=== PATIENT | male | born 1960 | race Two or more races ===

== ENCOUNTER 2016-08-02 08:32 | Outpatient (CLI) | payer BC, OTHER ==
[2016-08-02 09:59] LABS: BASOPHILS % (AUTO) 0.6 % (0.0-2.0); EOSINOPHILS # (AUTO) 0.3 /CMM (0.0-0.7); EOSINOPHILS % (AUTO) 4.5 % (0.0-6.0); HEMATOCRIT 51 % (39-51); HEMOGLOBIN 17.1 g/dL (13.5-17.5); LYMPHOCYTES # (AUTO) 3.2 /CMM (0.8-4.8); LYMPHOCYTES % (AUTO) 42.1 % (20.0-44.0); MEAN CORPUSCULAR HEMOGLOBIN 30 PG (26.0-33.0); MEAN CORPUSCULAR HGB CONC 34 g/dl (31.0-36.0); MEAN CORPUSCULAR VOLUME 89 fL (80-96); MONOCYTES # (AUTO) 0.4 /CMM (0.1-1.30); MONOCYTES % (AUTO) 5.6 % (2.0-12.0); NEUTROPHILS # (AUTO) 3.6 /CMM (1.8-8.9); NEUTROPHILS % (AUTO) 47.2 % (43.0-81.0); PLATELET COUNT (AUTO) 256 /CMM (150-450); RDW COEFFICIENT OF VARIATION 12.5 (11.5-15.0); RED BLOOD CELL COUNT(AUTO) 5.69 MIL/uL (4.5-6.0); WHITE BLOOD COUNT (AUTO) 7.6 K/uL (4.3-11.0)
[2016-08-02 10:02] LABS: APPEARANCE,URINE CLEAR (CLEAR); BILIRUBIN,URINE NEGATIVE (NEGATIVE); BLOOD, URINE TRACE Ery/uL (NEGATIVE); COLOR,URINE YELLOW (YELLOW); KETONES,URINE NEGATIVE (NEGATIVE); LEUKOCYTE ESTERASE ,URINE NEGATIVE (NEGATIVE); NITRITE, URINE NEGATIVE (NEGATIVE); PH,URINE 6.5 (5.0-8.0); PROTEIN,URINE NEGATIVE (NEGATIVE); UGLUCOSE NEGATIVE (NEGATIVE); UROBILINOGEN,URINE 0.2 EU/dL (0.2)
[2016-08-02 10:20] LABS: ALBUMIN 4.1 g/dL (3.4-5.0); BILIRUBIN,TOTAL 0.5 mg/dL (0.2-1.0); CALCIUM, SERUM 8.9 mg/dL (8.5-10.1); CREATININE 0.9 mg/dL (0.6-1.3); POTASSIUM 4.4 mmol/L (3.5-5.1); TOTAL PROTEIN, SERUM 7.9 g/dL (6.4-8.2)
[2016-08-02 10:30] LABS: FREE T4 (FREE THYROXINE) 0.92 ng/dL (0.76-1.46); THYROID STIMULATING HORMONE 1.265 uIU/mL (0.358-3.74)
[2016-08-02 10:37] LABS: ADD URINE CULTURE NO; BACTERIA,URINE None seen /HPF (None Seen); RBC,URINE 0-2 /HPF (0-2); SQUAMOUS EPITHELIAL CELL,UR None Seen /HPF (None Seen); WBC,URINE NONE SEEN /HPF (0-3)
== END 2016-08-02 23:59 | disposition home or self-care (01) ==
LOC: LAB 08:32
PROVIDERS: ATTEND Family Medicine
DX: I10 Essential (primary) hypertension (principal); E55.9 Vitamin D deficiency, unspecified
CPT/HCPCS: 36415; 80053-TC; 80061-TC; 81000-TC; 82306; 84439-TC; 84443-TC; 85025-TC

== ENCOUNTER → 2016-08-15 | Outpatient (CLI) | payer BC, OTHER ==
[2016-08-15 09:24] LABS: APPEARANCE,URINE CLEAR (CLEAR); BILIRUBIN,URINE NEGATIVE (NEGATIVE); BLOOD, URINE TRACE-INTA Ery/uL (NEGATIVE); COLOR,URINE YELLOW (YELLOW); KETONES,URINE NEGATIVE (NEGATIVE); LEUKOCYTE ESTERASE ,URINE NEGATIVE (NEGATIVE); NITRITE, URINE NEGATIVE (NEGATIVE); PROTEIN,URINE NEGATIVE (NEGATIVE); UGLUCOSE NEGATIVE (NEGATIVE); UROBILINOGEN,URINE 0.2 EU/dL (0.2)
[2016-08-15 09:28] LABS: RBC,URINE 0-2 /HPF (0-2); WBC,URINE NONE SEEN /HPF (0-3)
[2016-08-15 09:29] LABS: ADD URINE CULTURE NO; BACTERIA,URINE None seen /HPF (None Seen); SQUAMOUS EPITHELIAL CELL,UR Few /HPF (None Seen)
== END | disposition home or self-care (01) ==
LOC: LAB 08:54
PROVIDERS: ATTEND Family Medicine
DX: R31.21 Asymptomatic microscopic hematuria (principal)
CPT/HCPCS: 81000-TC

== ENCOUNTER → 2016-08-16 | Outpatient (CLI) | payer BC, OTHER | END | disposition home or self-care (01) | LOC: US 08:51 | PROVIDERS: ATTEND Family Medicine | DX: N40.0 Benign prostatic hyperplasia without lower urinary tract symptoms (principal); N28.89 Other specified disorders of kidney and ureter | CPT/HCPCS: 76770-TC ==

== ENCOUNTER 2016-09-19 08:12 | Outpatient (CLI) | payer BC, OTHER ==
[2016-09-19 08:37] LABS: BASOPHILS % (AUTO) 0.4 % (0.0-2.0); EOSINOPHILS # (AUTO) 0.3 /CMM (0.0-0.7); EOSINOPHILS % (AUTO) 2.9 % (0.0-6.0); HEMATOCRIT 47 % (39-51); HEMOGLOBIN 16.5 g/dL (13.5-17.5); LYMPHOCYTES # (AUTO) 3.2 /CMM (0.8-4.8); LYMPHOCYTES % (AUTO) 32.8 % (20.0-44.0); MEAN CORPUSCULAR HEMOGLOBIN 31 PG (26.0-33.0); MEAN CORPUSCULAR HGB CONC 35 g/dl (31.0-36.0); MEAN CORPUSCULAR VOLUME 88 fL (80-96); MONOCYTES # (AUTO) 0.6 /CMM (0.1-1.30); MONOCYTES % (AUTO) 5.7 % (2.0-12.0); NEUTROPHILS # (AUTO) 5.7 /CMM (1.8-8.9); NEUTROPHILS % (AUTO) 58.2 % (43.0-81.0); PLATELET COUNT (AUTO) 252 /CMM (150-450); RDW COEFFICIENT OF VARIATION 12.1 (11.5-15.0); RED BLOOD CELL COUNT(AUTO) 5.38 MIL/uL (4.5-6.0); WHITE BLOOD COUNT (AUTO) 9.9 K/uL (4.3-11.0)
[2016-09-19 09:03] LABS: BILIRUBIN,TOTAL 0.7 mg/dL (0.2-1.0); CALCIUM, SERUM 9.2 mg/dL (8.5-10.1); POTASSIUM 4.3 mmol/L (3.5-5.1); TOTAL PROTEIN, SERUM 7.9 g/dL (6.4-8.2)
[2016-09-19] MEDS ORDERED: IV NS 0.9% 250 ML IV ONE (09:05)
[2016-09-19] MEDS ORDERED: CT SWABBABLE VALVE TRANS SET 1 EA INFUS.SET MC ONE (09:05)
[2016-09-19] MEDS ORDERED: IOHEXOL-300 100 ML VIAL IV ONE (09:05)
== END 2016-09-19 23:59 | disposition home or self-care (01) ==
LOC: CT 08:12
PROVIDERS: ATTEND Family Medicine
DX: N20.0 Calculus of kidney (principal); M47.897 Other spondylosis, lumbosacral region; M48.07 Spinal stenosis, lumbosacral region; E78.2 Mixed hyperlipidemia
CPT/HCPCS: 36415; 74178; 80053; 80061; 85025; J7050; Q9967

== ENCOUNTER 2017-07-01 08:57 | Outpatient (CLI) | payer BC, OTHER ==
[2017-07-01 09:53] LABS: BASOPHILS # (AUTO) 0.1 /CMM (0.0-0.2); BASOPHILS % (AUTO) 0.7 % (0.0-2.0); EOSINOPHILS # (AUTO) 0.1 /CMM (0.0-0.7); EOSINOPHILS % (AUTO) 1.8 % (0.0-6.0); HEMATOCRIT 47 % (39-51); LYMPHOCYTES # (AUTO) 3.3 /CMM (0.8-4.8); MEAN CORPUSCULAR HEMOGLOBIN 31 PG (26.0-33.0); MEAN CORPUSCULAR HGB CONC 34 g/dl (31.0-36.0); MEAN CORPUSCULAR VOLUME 89 fL (80-96); MONOCYTES # (AUTO) 0.5 /CMM (0.1-1.30); NEUTROPHILS # (AUTO) 3.9 /CMM (1.8-8.9); NEUTROPHILS % (AUTO) 49.5 % (43.0-81.0); PLATELET COUNT (AUTO) 232 /CMM (150-450); RDW COEFFICIENT OF VARIATION 12.2 (11.5-15.0); RED BLOOD CELL COUNT(AUTO) 5.24 MIL/uL (4.5-6.0); WHITE BLOOD COUNT (AUTO) 7.9 K/uL (4.3-11.0)
[2017-07-01 10:14] LABS: BILIRUBIN,TOTAL 0.8 mg/dL (0.2-1.0); CALCIUM, SERUM 9.1 mg/dL (8.5-10.1); CREATININE 0.9 mg/dL (0.6-1.3); POTASSIUM 4.5 mmol/L (3.5-5.1); TOTAL PROTEIN, SERUM 7.8 g/dL (6.4-8.2)
[2017-07-01 10:15] LABS: APPEARANCE,URINE CLEAR (CLEAR); BILIRUBIN,URINE NEGATIVE (NEGATIVE); BLOOD, URINE TRACE Ery/uL (NEGATIVE); COLOR,URINE YELLOW (YELLOW); KETONES,URINE NEGATIVE (NEGATIVE); LEUKOCYTE ESTERASE ,URINE NEGATIVE (NEGATIVE); NITRITE, URINE NEGATIVE (NEGATIVE); PROTEIN,URINE NEGATIVE (NEGATIVE); UGLUCOSE NEGATIVE (NEGATIVE); UROBILINOGEN,URINE 0.2 EU/dL (0.2)
[2017-07-01 10:22] LABS: THYROID STIMULATING HORMONE 1.036 uIU/mL (0.358-3.74)
[2017-07-01 10:37] LABS: BACTERIA,URINE Rare /HPF (None Seen); SQUAMOUS EPITHELIAL CELL,UR Rare /HPF (None Seen); WBC,URINE 0-2 /HPF (0-3)
[2017-07-01 10:39] LABS: MUCUS,URINE Moderate /LPF (None Seen)
== END 2017-07-01 23:59 | disposition home or self-care (01) ==
LOC: LAB 08:57
PROVIDERS: ATTEND Family Medicine
DX: I10 Essential (primary) hypertension (principal); E55.9 Vitamin D deficiency, unspecified
CPT/HCPCS: 36415; 80053-TC; 80061-TC; 81000-TC; 82306; 84439-TC; 84443-TC; 85025-TC

== ENCOUNTER 2017-09-08 08:56 | Outpatient (CLI) | payer BC ==
[2017-09-08 10:20] LABS: PROSTATE SPECIFIC ANTIGEN SCR 1.6 ng/mL (0.00-4.00)
== END 2017-09-08 23:59 | disposition home or self-care (01) ==
LOC: LAB 08:56
PROVIDERS: ATTEND Family Medicine
DX: R31.9 Hematuria, unspecified (principal)
CPT/HCPCS: 36415; 82565-TC; 84153-TC; 84520-TC

== ENCOUNTER 2017-09-09 08:56 | Outpatient (CLI) | payer BC ==
[2017-09-09] MEDS ORDERED: IOHEXOL-300 100 ML VIAL IV ONE (09:18)
[2017-09-09] MEDS ORDERED: IV NS 0.9% 500 ML IV ONE (09:18)
[2017-09-09] MEDS ORDERED: CT SWABBABLE VALVE TRANS SET 1 EA INFUS.SET MC ONE (09:18)
== END 2017-09-09 23:59 | disposition home or self-care (01) ==
LOC: CT 08:56
PROVIDERS: ATTEND Family Medicine
DX: M47.896 Other spondylosis, lumbar region (principal); R31.9 Hematuria, unspecified
CPT/HCPCS: 74178; J7040; Q9967

== ENCOUNTER 2019-03-29 09:41 | Outpatient (CLI) | payer BC ==
[2019-03-29 10:16] LABS: BASOPHILS # (AUTO) 0.1 /CMM (0.0-0.2); BASOPHILS % (AUTO) 0.6 % (0.0-2.0); EOSINOPHILS % (AUTO) 1.3 % (0.0-6.0); HEMATOCRIT 47 % (39-51); HEMOGLOBIN 16.2 g/dL (13.5-17.5); LYMPHOCYTES # (AUTO) 4.6 /CMM (0.8-4.8); LYMPHOCYTES % (AUTO) 46.6 % (20.0-44.0); MEAN CORPUSCULAR HGB CONC 34 g/dl (31.0-36.0); MEAN CORPUSCULAR VOLUME 90 fL (80-96); MONOCYTES # (AUTO) 0.6 /CMM (0.1-1.30); MONOCYTES % (AUTO) 6.6 % (2.0-12.0); NEUTROPHILS # (AUTO) 4.4 /CMM (1.8-8.9); NEUTROPHILS % (AUTO) 44.9 % (43.0-81.0); PLATELET COUNT (AUTO) 209 /CMM (150-450); RED BLOOD CELL COUNT(AUTO) 5.25 MIL/uL (4.5-6.0); WHITE BLOOD COUNT (AUTO) 9.8 K/uL (4.3-11.0)
[2019-03-29 10:26] LABS: ALBUMIN 4.1 g/dL (3.4-5.0); BILIRUBIN,TOTAL 0.8 mg/dL (0.2-1.0); CALCIUM, SERUM 9.3 mg/dL (8.5-10.1); POTASSIUM 4.1 mmol/L (3.5-5.1); TOTAL PROTEIN, SERUM 7.8 g/dL (6.4-8.2)
[2019-03-30] MEDS ORDERED: ONDANSETRON HCL/PF 4 MG/2 ML VIAL ONE (06:41)
[2019-03-30 08:06] LABS: FOLIC ACID > 20.0 ng/mL (>3.0)
== END 2019-03-29 23:59 | disposition home or self-care (01) ==
LOC: LAB 09:41
PROVIDERS: ATTEND Family Medicine
DX: E78.2 Mixed hyperlipidemia (principal); E55.9 Vitamin D deficiency, unspecified; E53.9 Vitamin B deficiency, unspecified; I10 Essential (primary) hypertension; R73.03 Prediabetes
CPT/HCPCS: 36415; 80053-TC; 80061-TC; 82306; 85025-TC; J2405

== ENCOUNTER 2019-05-18 10:12 | Outpatient (CLI) | payer BC ==
[2019-05-18 10:54] LABS: BASOPHILS # (AUTO) 0.1 /CMM (0.0-0.2); BASOPHILS % (AUTO) 0.6 % (0.0-2.0); EOSINOPHILS % (AUTO) 0.9 % (0.0-6.0); HEMATOCRIT 47 % (39-51); LYMPHOCYTES # (AUTO) 5.1 /CMM (0.8-4.8); LYMPHOCYTES % (AUTO) 51.7 % (20.0-44.0); MEAN CORPUSCULAR HGB CONC 34 g/dl (31.0-36.0); MEAN CORPUSCULAR VOLUME 89 fL (80-96); MONOCYTES # (AUTO) 0.6 /CMM (0.1-1.30); MONOCYTES % (AUTO) 6.1 % (2.0-12.0); NEUTROPHILS % (AUTO) 40.7 % (43.0-81.0); PLATELET COUNT (AUTO) 224 /CMM (150-450); RED BLOOD CELL COUNT(AUTO) 5.29 MIL/uL (4.5-6.0); WHITE BLOOD COUNT (AUTO) 9.9 K/uL (4.3-11.0)
[2019-05-18 11:10] LABS: ALBUMIN 4.1 g/dL (3.4-5.0); BILIRUBIN,TOTAL 0.7 mg/dL (0.2-1.0); CALCIUM, SERUM 9.5 mg/dL (8.5-10.1); POTASSIUM 4.3 mmol/L (3.5-5.1); TOTAL PROTEIN, SERUM 7.9 g/dL (6.4-8.2)
[2019-05-18 11:34] LABS: FREE PSA 0.36 ng/mL (0.00-45); FREE T4 (FREE THYROXINE) 0.84 ng/dL (0.76-1.46); PROSTATE SPECIFIC ANTIGEN SCR 2.12 ng/mL (0.00-4.00); THYROID STIMULATING HORMONE 1.452 uIU/mL (0.358-3.74)
[2019-05-19 12:08] LABS: FOLIC ACID > 20.0 ng/mL (>3.0)
== END 2019-05-18 23:59 | disposition home or self-care (01) ==
LOC: LAB 10:12
PROVIDERS: ATTEND Family Medicine
DX: Z12.5 Encounter for screening for malignant neoplasm of prostate (principal); I10 Essential (primary) hypertension; E78.5 Hyperlipidemia, unspecified; E55.9 Vitamin D deficiency, unspecified; E53.9 Vitamin B deficiency, unspecified; R73.03 Prediabetes
CPT/HCPCS: 36415; 80053-TC; 80061-TC; 82306; 84153-TC; 84154-TC; 84439-TC; 84443-TC; 85025-TC; 87086-TC

== ENCOUNTER 2019-06-29 09:04 | Outpatient (CLI) | payer BC | END 2019-06-29 23:59 | disposition home or self-care (01) | LOC: US 09:04 | PROVIDERS: ATTEND Family Medicine | DX: R97.20 Elevated prostate specific antigen [PSA] (principal) | CPT/HCPCS: 76770-TC ==

== ENCOUNTER → 2022-04-16 | Outpatient (CLI) | payer BC ==
[2022-04-16 10:16] LABS: BASOPHILS # (AUTO) 0.1 K/uL (0.0-0.2); BASOPHILS % (AUTO) 0.3 % (0.0-2.0); EOSINOPHILS % (AUTO) 0.7 % (0.0-6.0); HEMATOCRIT 48 % (39-51); HEMOGLOBIN 15.7 g/dL (13.5-17.5); MEAN CORPUSCULAR HGB CONC 33 g/dl (31.0-36.0); MEAN CORPUSCULAR VOLUME 89 fL (80-96); MONOCYTES # (AUTO) 0.9 K/uL (0.1-1.30); MONOCYTES % (AUTO) 3.2 % (2.0-12.0); NEUTROPHILS % (AUTO) 25.8 % (43.0-81.0); PLATELET COUNT (AUTO) 206 K/uL (150-450); WHITE BLOOD COUNT (AUTO) 27.1 K/uL (4.3-11.0)
[2022-04-16 10:21] LABS: BILIRUBIN,URINE NEGATIVE (NEGATIVE); COLOR,URINE YELLOW (YELLOW); LEUKOCYTE ESTERASE ,URINE NEGATIVE (NEGATIVE); NITRITE, URINE NEGATIVE (NEGATIVE); PROTEIN,URINE NEGATIVE (NEGATIVE); UGLUCOSE NEGATIVE (NEGATIVE); UROBILINOGEN,URINE 0.2 EU/dL (0.2)
[2022-04-16 10:57] LABS: BACTERIA,URINE Few /HPF (None Seen); MUCUS,URINE Few /LPF (None Seen); SQUAMOUS EPITHELIAL CELL,UR Few /HPF (None Seen); WBC,URINE 0-2 /HPF (0-3)
[2022-04-16 20:04] LABS: LYMPHOCYTES % (MANUAL) 51 % (16-48); MONOCYTES % (MANUAL) 1 % (0-11.0); NEUTROPHILS % (MANUAL) 22 (42-76); REACTIVE LYMPHOCYTES 26 % (0-0)
== END | disposition home or self-care (01) ==
LOC: LAB 09:30
PROVIDERS: ATTEND Family Medicine
DX: D72.829 Elevated white blood cell count, unspecified (principal); R31.9 Hematuria, unspecified
CPT/HCPCS: 36415; 81001; 84153-TC; 85025-TC; 87086-TC

== ENCOUNTER 2022-04-24 09:36 | Outpatient (CLI) | payer BC ==
[2022-04-24 10:45] LABS: BASOPHILS % (AUTO) 0.1 % (0.0-2.0); EOSINOPHILS % (AUTO) 0.8 % (0.0-6.0); HEMATOCRIT 49 % (39-51); HEMOGLOBIN 16.1 g/dL (13.5-17.5); LYMPHOCYTES # (AUTO) 18.5 K/uL (0.8-4.8); LYMPHOCYTES % (AUTO) 66.4 % (20.0-44.0); MEAN CORPUSCULAR HGB CONC 33 g/dl (31.0-36.0); MEAN CORPUSCULAR VOLUME 89 fL (80-96); MONOCYTES # (AUTO) 1.3 K/uL (0.1-1.30); MONOCYTES % (AUTO) 4.5 % (2.0-12.0); NEUTROPHILS # (AUTO) 7.9 K/uL (1.8-8.9); NEUTROPHILS % (AUTO) 28.2 % (43.0-81.0); PLATELET COUNT (AUTO) 209 K/uL (150-450); RED BLOOD CELL COUNT(AUTO) 5.53 MIL/uL (4.5-6.0); WHITE BLOOD COUNT (AUTO) 27.9 K/uL (4.3-11.0)
[2022-04-24 11:01] LABS: ALANINE AMINOTRANSFERASE 43 U/L (12-78); ALBUMIN 4.2 g/dL (3.4-5.0); ALKALINE PHOSPHATASE 88 U/L (46-116); ASPARTATE AMINOTRANSFERASE 26 U/L (15-37); BILIRUBIN,TOTAL 0.6 mg/dL (0.2-1.0); CALCIUM, SERUM 9.4 mg/dL (8.5-10.1); CARBON DIOXIDE 30 mmol/L (21-32); CHLORIDE 105 mmol/L (98-107); GLUCOSE 95 mg/dL (74-106); POTASSIUM 4.3 mmol/L (3.5-5.1); SODIUM SERUM 139 mmol/L (136-145); TOTAL PROTEIN, SERUM 7.8 g/dL (6.4-8.2); UREA NITROGEN, BLOOD 22 mg/dL (7-18)
[2022-04-24 11:05] LABS: C-REACTIVE PROTEIN < 0.2 mg/dL (0.0-0.9)
[2022-04-25 10:07] LABS: *ANA ANTI-CENTROMERE B AB <0.2 AI (0.0-0.9); *ANA ANTI-DNA(DS) AB, QN 5 IU/mL (0-9); *ANA ANTI-JO-1 <0.2 AI (0.0-0.9); *ANA ANTICHROMATIN ANTIBODY <0.2 AI (0.0-0.9); *ANA RNP ANTIBODIES <0.2 AI (0.0-0.9); *ANA SJOGREN'S ANTI-SS-A <0.2 AI (0.0-0.9); *ANA SJOGREN'S ANTI-SS-B <0.2 AI (0.0-0.9); *ANAANTI-SCLERODERMA-70 AB <0.2 AI (0.0-0.9); *ANASMITH AB <0.2 AI (0.0-0.9)
== END 2022-04-24 23:59 | disposition home or self-care (01) ==
LOC: LAB 09:36
PROVIDERS: ATTEND Internal Medicine Hematology & Oncology
DX: D72.820 Lymphocytosis (symptomatic) (principal)
CPT/HCPCS: 36415; 80053-TC; 83615-TC; 85025-TC; 86140-TC; 86225; 86235; 86431-TC

== ENCOUNTER 2022-05-07 10:01 | Outpatient (CLI) | payer BC ==
[2022-05-07] MEDS ORDERED: IOHEXOL-300 100 ML VIAL IV ONE (10:20)
[2022-05-07] MEDS ORDERED: CT SWABBABLE VALVE TRANS SET 1 EA INFUS.SET MC ONE (10:20)
[2022-05-07] MEDS ORDERED: IV NS 0.9% 250 ML IV ONE (10:20)
[2022-05-08 08:06] LABS: IMMUNOGLOBULIN A, SERUM 155 mg/dL (61-437); IMMUNOGLOBULIN G, SERUM 1281 mg/dL (603-1613); IMMUNOGLOBULIN M, SERUM 68 mg/dL (20-172)
== END 2022-05-07 23:59 | disposition home or self-care (01) ==
LOC: CT 10:01
PROVIDERS: ATTEND Internal Medicine Hematology & Oncology
DX: C91.10 Chronic lymphocytic leukemia of B-cell type not having achieved remission (principal); N40.1 Benign prostatic hyperplasia with lower urinary tract symptoms; R59.9 Enlarged lymph nodes, unspecified
CPT/HCPCS: 71260; 74177; 82784 ×3; J7050; Q9967

== ENCOUNTER 2022-06-11 09:26 | Outpatient (CLI) | payer BC, OTHER ==
[2022-06-11 11:41] LABS: EOSINOPHILS % (AUTO) 0.8 % (0.0-6.0); HEMATOCRIT 48 % (39-51); HEMOGLOBIN 15.8 g/dL (13.5-17.5); LYMPHOCYTES # (AUTO) 25.7 K/uL (0.8-4.8); LYMPHOCYTES % (AUTO) 72.2 % (20.0-44.0); MEAN CORPUSCULAR HGB CONC 33 g/dl (31.0-36.0); MEAN CORPUSCULAR VOLUME 88 fL (80-96); MONOCYTES % (AUTO) 2.8 % (2.0-12.0); NEUTROPHILS # (AUTO) 8.6 K/uL (1.8-8.9); NEUTROPHILS % (AUTO) 24.2 % (43.0-81.0); PLATELET COUNT (AUTO) 211 K/uL (150-450); RED BLOOD CELL COUNT(AUTO) 5.47 MIL/uL (4.5-6.0)
[2022-06-11 11:44] LABS: WHITE BLOOD COUNT (AUTO) 35.6 K/uL (4.3-11.0)
[2022-06-11 11:50] LABS: ALBUMIN 4.2 g/dL (3.4-5.0); BILIRUBIN,TOTAL 0.6 mg/dL (0.2-1.0); CALCIUM, SERUM 9.3 mg/dL (8.5-10.1); POTASSIUM 3.8 mmol/L (3.5-5.1)
[2022-06-11 14:43] LABS: BAND % (MANUAL) 2 % (0.0-5.0); LYMPHOCYTES % (MANUAL) 35 % (16-48); MONOCYTES % (MANUAL) 2 % (0-11.0); NEUTROPHILS % (MANUAL) 16 (42-76); REACTIVE LYMPHOCYTES 45 % (0-0)
== END 2022-06-11 23:59 | disposition home or self-care (01) ==
LOC: LAB 09:26
PROVIDERS: ATTEND Internal Medicine Hematology & Oncology
DX: Z13.228 Encounter for screening for other metabolic disorders (principal); R74.02 Elevation of levels of lactic acid dehydrogenase [LDH]; D64.9 Anemia, unspecified
CPT/HCPCS: 36415; 80053-TC; 83615-TC; 85025-TC

== ENCOUNTER 2022-08-07 09:23 | Outpatient (CLI) | payer BC ==
[2022-08-07 10:48] LABS: ALBUMIN 4.1 g/dL (3.4-5.0); BILIRUBIN,TOTAL 0.5 mg/dL (0.2-1.0); CALCIUM, SERUM 9.2 mg/dL (8.5-10.1); POTASSIUM 4.6 mmol/L (3.5-5.1); TOTAL PROTEIN, SERUM 7.8 g/dL (6.4-8.2)
[2022-08-07 10:58] LABS: BASOPHILS % (AUTO) 0.2 % (0.0-2.0); EOSINOPHILS % (AUTO) 0.7 % (0.0-6.0); HEMATOCRIT 47 % (39-51); LYMPHOCYTES # (AUTO) 23.1 K/uL (0.8-4.8); LYMPHOCYTES % (AUTO) 81.8 % (20.0-44.0); MEAN CORPUSCULAR HGB CONC 34 g/dl (31.0-36.0); MEAN CORPUSCULAR VOLUME 87 fL (80-96); MONOCYTES # (AUTO) 0.5 K/uL (0.1-1.30); MONOCYTES % (AUTO) 1.6 % (2.0-12.0); NEUTROPHILS # (AUTO) 4.4 K/uL (1.8-8.9); NEUTROPHILS % (AUTO) 15.7 % (43.0-81.0); PLATELET COUNT (AUTO) 177 K/uL (150-450); RED BLOOD CELL COUNT(AUTO) 5.44 MIL/uL (4.5-6.0); WHITE BLOOD COUNT (AUTO) 28.2 K/uL (4.3-11.0)
[2022-08-07 13:16] LABS: BASOPHILS % (MANUAL) 0 % (0.0-2.0); EOSINOPHILS % (MANUAL) 0 % (0-4); LYMPHOCYTES % (MANUAL) 75 % (16-48); MONOCYTES % (MANUAL) 6 % (0-11.0); NEUTROPHILS % (MANUAL) 19 (42-76)
== END 2022-08-07 23:59 | disposition home or self-care (01) ==
LOC: LAB 09:23
PROVIDERS: ATTEND Internal Medicine Hematology & Oncology
DX: Z13.228 Encounter for screening for other metabolic disorders (principal); D64.9 Anemia, unspecified; R74.02 Elevation of levels of lactic acid dehydrogenase [LDH]
CPT/HCPCS: 36415; 80053-TC; 83615-TC; 85025-TC

== ENCOUNTER 2023-06-10 10:02 | Outpatient (CLI) | payer BC ==
[2023-06-10 11:34] LABS: APPEARANCE,URINE CLEAR (CLEAR); BILIRUBIN,URINE NEGATIVE (NEGATIVE); BLOOD, URINE 1+ Ery/uL (NEGATIVE); COLOR,URINE YELLOW (YELLOW); KETONES,URINE NEGATIVE (NEGATIVE); LEUKOCYTE ESTERASE ,URINE NEGATIVE (NEGATIVE); NITRITE, URINE NEGATIVE (NEGATIVE); PH,URINE 6.5 (5.0-8.0); PROTEIN,URINE NEGATIVE (NEGATIVE); UGLUCOSE NEGATIVE (NEGATIVE); UROBILINOGEN,URINE 0.2 EU/dL (0.2)
[2023-06-10 12:05] LABS: ADD URINE CULTURE NO; BACTERIA,URINE Rare /HPF (None Seen); SQUAMOUS EPITHELIAL CELL,UR Rare /HPF (None Seen); WBC,URINE 0-2 /HPF (0-3)
== END 2023-06-10 23:59 | disposition home or self-care (01) ==
LOC: LAB 10:02
PROVIDERS: ATTEND Family Medicine
DX: R31.9 Hematuria, unspecified (principal)
CPT/HCPCS: 81001

== ENCOUNTER 2023-06-25 11:37 | Outpatient (CLI) | payer BC | END 2023-06-25 23:59 | disposition home or self-care (01) | LOC: LAB 11:37 | PROVIDERS: ATTEND Family Medicine | DX: R31.21 Asymptomatic microscopic hematuria (principal) | CPT/HCPCS: 87086-TC ==

== ENCOUNTER 2024-05-05 09:02 | Outpatient (CLI) | payer BC ==
[2024-05-05 10:00] LABS: BASOPHILS # (AUTO) 0.1 K/uL (0.0-0.2); BASOPHILS % (AUTO) 0.1 % (0.0-2.0)
[2024-05-05 10:07] LABS: ALBUMIN 4.4 g/dL (3.4-5.0); BILIRUBIN,TOTAL 0.7 mg/dL (0.2-1.0); CALCIUM, SERUM 8.9 mg/dL (8.5-10.1); EOSINOPHILS # (AUTO) 0.3 K/uL (0.0-0.7); EOSINOPHILS % (AUTO) 0.4 % (0.0-6.0); HEMATOCRIT 47 % (39-51); HEMOGLOBIN 15.4 g/dL (13.5-17.5); LYMPHOCYTES # (AUTO) 65.5 K/uL (0.8-4.8); LYMPHOCYTES % (AUTO) 89.1 % (20.0-44.0); MEAN CORPUSCULAR HEMOGLOBIN 29 PG (26.0-33.0); MEAN CORPUSCULAR HGB CONC 33 g/dl (31.0-36.0); MEAN CORPUSCULAR VOLUME 88 fL (80-96); MONOCYTES # (AUTO) 0.9 K/uL (0.1-1.30); MONOCYTES % (AUTO) 1.2 % (2.0-12.0); NEUTROPHILS # (AUTO) 6.8 K/uL (1.8-8.9); NEUTROPHILS % (AUTO) 9.2 % (43.0-81.0); PLATELET COUNT (AUTO) 173 K/uL (150-450); POTASSIUM 4.2 mmol/L (3.5-5.1); RED BLOOD CELL COUNT(AUTO) 5.34 MIL/uL (4.5-6.0); RED CELL DISTRIBUTION WIDTH 13.9 % (11.5-15.0); TOTAL PROTEIN, SERUM 7.8 g/dL (6.4-8.2)
[2024-05-05 10:38] LABS: WHITE BLOOD COUNT (AUTO) 73.6 K/uL (4.3-11.0)
[2024-05-05 11:04] LABS: LYMPHOCYTES % (MANUAL) 62 % (16-48); MONOCYTES % (MANUAL) 1 % (0-11.0); NEUTROPHILS % (MANUAL) 8 (42-76); PLATELET ESTIMATE ADEQUATE
[2024-05-05] MEDS ORDERED: ATOR10TA PO (18:18)
[2024-05-05] MEDS ORDERED: LOSA50TA39 PO (18:18)
[2024-05-06 11:07] LABS: IMMUNOGLOBULIN A, SERUM 125 mg/dL (61-437); IMMUNOGLOBULIN G, SERUM 1202 mg/dL (603-1613); IMMUNOGLOBULIN M, SERUM 75 mg/dL (20-172)
== END 2024-05-05 23:59 | disposition home or self-care (01) ==
LOC: LAB 09:02
PROVIDERS: ATTEND Internal Medicine Hematology & Oncology
DX: Z13.228 Encounter for screening for other metabolic disorders (principal); D64.9 Anemia, unspecified; R74.02 Elevation of levels of lactic acid dehydrogenase [LDH]; D80.3 Selective deficiency of immunoglobulin G [IgG] subclasses
CPT/HCPCS: 36415; 80053-TC; 82784; 83615-TC; 85025-TC

== ENCOUNTER 2024-05-05 16:41 | Inpatient (IN) | payer BC ==
[~2024-05-05] VITALS: Ht 170.2 cm; Wt 87.1 kg
[2024-05-05] MEDS ORDERED: LOSA50TA39 PO (18:18)
[2024-05-05] MEDS ORDERED: ATOR10TA PO (18:18)
[2024-05-05 18:35] LABS: BASOPHILS # (AUTO) 0.1 K/uL (0.0-0.2); BASOPHILS % (AUTO) 0.1 % (0.0-2.0); EOSINOPHILS # (AUTO) 0.3 K/uL (0.0-0.7); EOSINOPHILS % (AUTO) 0.4 % (0.0-6.0); HEMATOCRIT 43 % (39-51); HEMOGLOBIN 14.5 g/dL (13.5-17.5); LYMPHOCYTES # (AUTO) 69.3 K/uL (0.8-4.8); LYMPHOCYTES % (AUTO) 86.9 % (20.0-44.0); MEAN CORPUSCULAR HEMOGLOBIN 29 PG (26.0-33.0); MEAN CORPUSCULAR HGB CONC 34 g/dl (31.0-36.0); MEAN CORPUSCULAR VOLUME 88 fL (80-96); MONOCYTES # (AUTO) 1.7 K/uL (0.1-1.30); MONOCYTES % (AUTO) 2.2 % (2.0-12.0); NEUTROPHILS # (AUTO) 8.3 K/uL (1.8-8.9); NEUTROPHILS % (AUTO) 10.4 % (43.0-81.0); PLATELET COUNT (AUTO) 173 K/uL (150-450); RED BLOOD CELL COUNT(AUTO) 4.94 MIL/uL (4.5-6.0); RED CELL DISTRIBUTION WIDTH 14.2 % (11.5-15.0)
[2024-05-05 18:39] LABS: WHITE BLOOD COUNT (AUTO) 79.7 K/uL (4.3-11.0)
[2024-05-05 18:45] LABS: D-DIMER < 0.19 mg/L(FEU (0.17-0.50); FIBRINOGEN ACTIVITY 184 Mg/dL (213-485); INR 1.08 (0.91-1.10); PARTIAL THROMBOPLASTIN TIME 25.1 SEC (24.3-34.3); PROTHROMBIN TIME 11.4 SECS (9.2-11.1)
[2024-05-05] MEDS: CEFEPIME 1 GM in IV D5W 50 ML IV ONE (18:45)
[2024-05-05 18:50] LABS: CALCIUM, SERUM 8.7 mg/dL (8.5-10.1); POTASSIUM 3.9 mmol/L (3.5-5.1)
[2024-05-05 18:54] LABS: URIC ACID 6.8 mg/dL (2.6-7.2)
[2024-05-05 18:55] LABS: ALBUMIN 4.2 g/dL (3.4-5.0); BILIRUBIN,TOTAL 0.3 mg/dL (0.2-1.0); TOTAL PROTEIN, SERUM 7.5 g/dL (6.4-8.2)
[2024-05-05 19:23] LABS: NEUTROPHILS % (MANUAL) 4 (42-76); PLATELET ESTIMATE ADEQUATE
[2024-05-05 19:24] LABS: LYMPHOCYTES % (MANUAL) 95 % (16-48); MONOCYTES % (MANUAL) 1 % (0-11.0)
[2024-05-05] MEDS: IV NS 0.9% 1,000 ML BAG IV ONE (19:28)
[2024-05-05 19:30] VITALS: O2SAT 99
[2024-05-05] MEDS ORDERED: ACETAMINOPHEN 325 MG TABLET PO PRN (20:00)
[2024-05-05] MEDS ORDERED: Z GUARD REMEDY 4 OZ OINT TP PRN (20:00)
[2024-05-05] MEDS ORDERED: MAGNESIUM HYDROXIDE 30 ML UDC PO PRN (20:00)
[2024-05-05] MEDS ORDERED: ONDANSETRON HCL/PF 4 MG/2 ML VIAL IVP PRN (20:00)
[2024-05-05] MEDS ORDERED: MAG HYDROX/AL HYDROX/SIMETH 30 ML UDC PO PRN (20:00)
[2024-05-05] MEDS: CEFEPIME 1 GM in IV D5W 50 ML IV SCH (20:00)
[2024-05-05 20:56] LABS: ERYTHROCYTE SEDIMENTATION RATE 4 MM/HR (0-20)
[2024-05-06] MEDS: IV NS 0.9% 1,000 ML IV PRN (01:07)
[2024-05-06 07:30] VITALS: BP 136/83; TEMP 97.9; O2SAT 99
[2024-05-06 08:00] LABS: ALBUMIN 3.5 g/dL (3.4-5.0); BILIRUBIN,TOTAL 0.5 mg/dL (0.2-1.0); CALCIUM, SERUM 8.2 mg/dL (8.5-10.1); MAGNESIUM 2.3 mg/dL (1.8-2.4); PHOSPHORUS 3.2 mg/dL (2.5-4.9); POTASSIUM 3.9 mmol/L (3.5-5.1); TOTAL PROTEIN, SERUM 6.4 g/dL (6.4-8.2)
[2024-05-06 08:14] LABS: BASOPHILS # (AUTO) 0.1 K/uL (0.0-0.2); BASOPHILS % (AUTO) 0.1 % (0.0-2.0); EOSINOPHILS # (AUTO) 0.3 K/uL (0.0-0.7); EOSINOPHILS % (AUTO) 0.5 % (0.0-6.0); HEMATOCRIT 41 % (39-51); HEMOGLOBIN 13.5 g/dL (13.5-17.5); LYMPHOCYTES # (AUTO) 59.2 K/uL (0.8-4.8); LYMPHOCYTES % (AUTO) 89.2 % (20.0-44.0); MEAN CORPUSCULAR HEMOGLOBIN 30 PG (26.0-33.0); MEAN CORPUSCULAR HGB CONC 34 g/dl (31.0-36.0); MEAN CORPUSCULAR VOLUME 88 fL (80-96); MONOCYTES # (AUTO) 0.7 K/uL (0.1-1.30); MONOCYTES % (AUTO) 1.1 % (2.0-12.0); NEUTROPHILS # (AUTO) 6.1 K/uL (1.8-8.9); NEUTROPHILS % (AUTO) 9.1 % (43.0-81.0); PLATELET COUNT (AUTO) 153 K/uL (150-450); RED BLOOD CELL COUNT(AUTO) 4.59 MIL/uL (4.5-6.0)
[2024-05-06] MEDS: LOSARTAN POTASSIUM 50 MG TABLET PO SCH (08:18)
[2024-05-06] MEDS: ATORVASTATIN 10 MG TABLET PO SCH (08:18)
[2024-05-06 08:23] LABS: WHITE BLOOD COUNT (AUTO) 66.4 K/uL (4.3-11.0)
[2024-05-06] MEDS: CEFEPIME 2 GM in IV D5W 100 ML IV SCH (09:42)
[2024-05-06 11:29] LABS: EOSINOPHILS % (MANUAL) 1 % (0-4); LYMPHOCYTES % (MANUAL) 51 % (16-48); MONOCYTES % (MANUAL) 2 % (0-11.0); NEUTROPHILS % (MANUAL) 11 (42-76); REACTIVE LYMPHOCYTES 35 % (0-0)
[2024-05-06 11:33] LABS: ANISOCYTOSIS 1+; PLATELET ESTIMATE ADEQUATE
[2024-05-06] MEDS ORDERED: IV NS 0.9% 250 ML IV ONE (13:04)
[2024-05-06] MEDS ORDERED: CT SWABBABLE VALVE TRANS SET 1 EA INFUS.SET MC ONE (13:04)
[2024-05-06] MEDS ORDERED: IOHEXOL-300 100 ML VIAL IV ONE (13:04)
[2024-05-06 13:27] LABS: APPEARANCE,URINE CLEAR (CLEAR); BILIRUBIN,URINE NEGATIVE (NEGATIVE); BLOOD, URINE NEGATIVE Ery/uL (NEGATIVE); COLOR,URINE OTHER (YELLOW); KETONES,URINE NEGATIVE (NEGATIVE); LEUKOCYTE ESTERASE ,URINE NEGATIVE (NEGATIVE); NITRITE, URINE NEGATIVE (NEGATIVE); PH,URINE 6.5 (5.0-8.0); PROTEIN,URINE NEGATIVE (NEGATIVE); UGLUCOSE NEGATIVE (NEGATIVE); UROBILINOGEN,URINE 0.2 EU/dL (0.2)
[2024-05-06 16:00] VITALS: BP 133/78; TEMP 98.4; O2SAT 97
[2024-05-06] MEDS ORDERED: CEFEPIME 1 GM in IV D5W 50 ML IV SCH (18:00)
[2024-05-06 18:18] LABS: D-DIMER < 0.19 mg/L(FEU (0.17-0.50); FIBRINOGEN ACTIVITY 181 Mg/dL (213-485); INR 1.09 (0.91-1.10); PARTIAL THROMBOPLASTIN TIME 25.4 SEC (24.3-34.3); PROTHROMBIN TIME 11.5 SECS (9.2-11.1)
[2024-05-06 19:41] LABS: RHEUMATOID FACTOR SCREEN NEGATIVE (NEGATIVE)
[2024-05-06 20:00] VITALS: BP 134/74; TEMP 98.6; O2SAT 95
[2024-05-07 07:37] LABS: D-DIMER < 0.19 mg/L(FEU (0.17-0.50); FIBRINOGEN ACTIVITY 210 Mg/dL (213-485); PARTIAL THROMBOPLASTIN TIME 25.6 SEC (24.3-34.3); PROTHROMBIN TIME 11.6 SECS (9.2-11.1)
[2024-05-07 07:42] LABS: CALCIUM, SERUM 8.3 mg/dL (8.5-10.1); MAGNESIUM 2.3 mg/dL (1.8-2.4); PHOSPHORUS 2.7 mg/dL (2.5-4.9)
[2024-05-07 08:00] VITALS: BP 161/88; TEMP 97.7; O2SAT 98
[2024-05-07 08:40] LABS: BASOPHILS # (AUTO) 0.1 K/uL (0.0-0.2); BASOPHILS % (AUTO) 0.1 % (0.0-2.0); EOSINOPHILS # (AUTO) 0.3 K/uL (0.0-0.7); EOSINOPHILS % (AUTO) 0.6 % (0.0-6.0); HEMATOCRIT 42 % (39-51); LYMPHOCYTES # (AUTO) 51.1 K/uL (0.8-4.8); LYMPHOCYTES % (AUTO) 84.5 % (20.0-44.0); MEAN CORPUSCULAR HEMOGLOBIN 30 PG (26.0-33.0); MEAN CORPUSCULAR HGB CONC 34 g/dl (31.0-36.0); MEAN CORPUSCULAR VOLUME 88 fL (80-96); MONOCYTES # (AUTO) 1.5 K/uL (0.1-1.30); MONOCYTES % (AUTO) 2.5 % (2.0-12.0); NEUTROPHILS # (AUTO) 7.4 K/uL (1.8-8.9); NEUTROPHILS % (AUTO) 12.3 % (43.0-81.0); PLATELET COUNT (AUTO) 154 K/uL (150-450); RED BLOOD CELL COUNT(AUTO) 4.74 MIL/uL (4.5-6.0); RED CELL DISTRIBUTION WIDTH 13.8 % (11.5-15.0)
[2024-05-07 08:48] LABS: WHITE BLOOD COUNT (AUTO) 60.4 K/uL (4.3-11.0)
[2024-05-07 16:00] VITALS: BP 148/92; TEMP 98.2
[2024-05-07 18:25] LABS: LYMPHOCYTES % (MANUAL) 88 % (16-48); MONOCYTES % (MANUAL) 3 % (0-11.0); NEUTROPHILS % (MANUAL) 9 (42-76); SMUDGE CELLS FEW
[2024-05-07 18:26] LABS: ANISOCYTOSIS 1+
[2024-05-08 12:07] LABS: *ANA ANTI-CENTROMERE B AB <0.2 AI (0.0-0.9); *ANA ANTI-DNA(DS) AB, QN 3 IU/mL (0-9); *ANA ANTI-JO-1 <0.2 AI (0.0-0.9); *ANA ANTICHROMATIN ANTIBODY <0.2 AI (0.0-0.9); *ANA RNP ANTIBODIES <0.2 AI (0.0-0.9); *ANA SJOGREN'S ANTI-SS-A <0.2 AI (0.0-0.9); *ANA SJOGREN'S ANTI-SS-B <0.2 AI (0.0-0.9); *ANAANTI-SCLERODERMA-70 AB <0.2 AI (0.0-0.9); *ANASMITH AB <0.2 AI (0.0-0.9)
== END 2024-05-07 22:30 | disposition home or self-care (01) | DRG 836 ==
LOC: ER 16:44 → MED 19:51
PROVIDERS: ADMIT Nurse Practitioner Acute Care; ATTEND Student in an Organized Health Care Education/Training Program
DX: C91.00 Acute lymphoblastic leukemia not having achieved remission (principal); C91.10 Chronic lymphocytic leukemia of B-cell type not having achieved remission; E78.5 Hyperlipidemia, unspecified; I10 Essential (primary) hypertension; N40.0 Benign prostatic hyperplasia without lower urinary tract symptoms; R91.8 Other nonspecific abnormal finding of lung field; R79.89 Other specified abnormal findings of blood chemistry; R16.1 Splenomegaly, not elsewhere classified; R59.1 Generalized enlarged lymph nodes
CPT/HCPCS: 36415; 71045-TC; 71260-TC; 80048-TC; 80053-TC; 83010; 83615-TC; 83735-TC; 84100-TC; 84550-TC; 85025-TC; 85378-TC; 85385-TC; 85396; 85652-TC; 85730-TC; 86140-TC; 86225; 86235; 86431-TC; A4223; G0378; J0692; J7030; J7050; J7060; Q9967

== ENCOUNTER 2025-03-15 10:36 | Outpatient (CLI) | payer BC ==
[~2025-03-15 10:36] MED LIST: ATOR10TA PO; LOSA50TA39 PO
== END 2025-03-15 23:59 | disposition home or self-care (01) ==
LOC: RAD 10:36
PROVIDERS: ATTEND Family Medicine
DX: R05.9 Cough, unspecified (principal)
CPT/HCPCS: 71045-TC